=== PATIENT | female | born 1980 | race Caucasian/White ===

== ENCOUNTER 2020-03-31 11:16 | Outpatient (CLI) | payer BC, SELFPAY ==
--- NOTE | 2020-03-31 11:30 | MM_ITS ---
WS: [id number] BILATERAL SCREENING DIGITAL MAMMOGRAM WITH CAD HISTORY: screening COMPARISON: 04/03/2019 Bilateral CC and MLO views submitted. Computer aided detection analyzed. Breast composition: The breasts are heterogeneously dense, which may obscure small masses. No suspici ous masses, microcalcifications or architectural distortion. MM/[place] [id number] IMPRESSION: BI-RADS: 2-Benign FOLLOW UP: 1 Year Follow-up
== END 2020-03-31 11:17 | disposition home or self-care (01) ==
PROVIDERS: PCP Family Medicine; Visit Provider Obstetrics & Gynecology
DX: Z12.31 Encounter for screening mammogram for malignant neoplasm of breast (principal)
CPT/HCPCS: 77067

== ENCOUNTER 2021-06-30 12:49 | Outpatient (CLI) | payer OTHER, SELFPAY ==
--- NOTE | 2021-06-30 13:01 | MM_ITS ---
WS: [id number] BILATERAL DIGITAL SCREENING MAMMOGRAPHY WITH CAD CLINICAL INFORMATION: SCREENING HISTORY: Screening mammogram. No current complaints. COMPARISON: March 31, 2020 TECHNIQUE: Bilateral CC and MLO views. FINDINGS: The breasts are composed of heterogeneous fibroglandular density tissue, which can limit the detectio n of small underlying mass lesions. No suspicious mass, asymmetry, calcifications, or architectural d istortion. No evidence of malignancy. MM/[place] [id number] IMPRESSION: BI-RADS: 1-Negative FOLLOW UP: 1 Year Follow-up Recommend return to annual screening mammography.
== END 2021-06-30 12:50 | disposition home or self-care (01) ==
LOC: RADSHAW 12:55
PROVIDERS: PCP Family Medicine; Visit Provider Family Medicine
DX: Z12.31 Encounter for screening mammogram for malignant neoplasm of breast (principal)
CPT/HCPCS: 77067

== ENCOUNTER → 2021-10-12 08:12 | Outpatient (BNVA) | payer OTHER, SELFPAY | PROVIDERS: PCP Family Medicine; Visit Provider Obstetrics & Gynecology | DX: Z00.00 Encounter for general adult medical examination without abnormal findings (principal); R45.86 Emotional lability | CPT/HCPCS: 80061; 82670; 83036; 84443 ==

== ENCOUNTER 2022-08-03 08:18 | Outpatient (CLI) | payer OTHER, SELFPAY ==
--- NOTE | 2022-08-03 08:30 | FL_ITS ---
WS: [email or web address] Upper GI with air-contrast and small bowel follow-through, Clinical Data: EPIGASTRIC PAIN Comparison: None. Fluoroscopy time: 1.9 minutes # of spot films: 16 Findings: The patient swallowed the barium, and it flowed normally through the hypopharynx into the esophagus. There is mild cricopharyngeal achalasia at the C5-6 level. The esophagus showed normal motility. Ther e was a large hiatal hernia. There was significant gastroesophageal reflux with reflux occurring to t he level of the thoracic inlet. No polyp, mass, erosion, ulcer or fistula was seen. The barium passed into the stomach which was well distended and free of ulcer or deformity. No extri nsic mass could be seen. The barium then passed into the duodenal bulb which was well-distended and free of ulceration. The re mainder of the duodenum filled normally.. The jejunum and ileum were not remarkable. The terminal ileum showed no evidence of any obstruction o r stenosis. The barium then flowed into the cecum and ascending colon at one hour postingestion. FL/FL upper GI smallbowel series Impression: 1. Minimal cricopharyngeal achalasia at C5-C6. 2. Large hiatal hernia with marked gastroesophageal reflux. 3. Normal stomach mucosa. 4. Normal small bowel follow-through.
== END 2022-08-03 08:19 | disposition home or self-care (01) ==
PROVIDERS: PCP Family Medicine; Visit Provider Electrodiagnostic Medicine
DX: R10.13 Epigastric pain (principal); K44.9 Diaphragmatic hernia without obstruction or gangrene; K21.9 Gastro-esophageal reflux disease without esophagitis
CPT/HCPCS: 74240; 74248

== ENCOUNTER 2022-08-11 08:35 | Outpatient (CLI) | payer OTHER, SELFPAY ==
--- NOTE | 2022-08-11 08:50 | MM_ITS ---
WS: [email or web address] VIEWS: MLO and CC views both breasts. 3D digital tomosynthesis is also included in this exam. Comparison made with prior exam of 04/03/2019, 03/31/2020, 06/30/2021.. Findings: There was no sign of mass, architectural distortion or suspicious calcification in either breast. Sta ble appearing parenchymal densities in both breasts.Heterogeneously dense MM/[place] [id number] Impression: BI-RADS: 2-Benign FOLLOW-UP: 1 Year Follow-up This mammogram was also analyzed by the Computer Aided Detection System R2 [employer].
== END 2022-08-11 08:36 | disposition home or self-care (01) ==
PROVIDERS: PCP Family Medicine; Visit Provider Family Medicine
DX: Z12.31 Encounter for screening mammogram for malignant neoplasm of breast (principal)
CPT/HCPCS: 77063; 77067

== ENCOUNTER → 2023-03-02 09:51 | Outpatient (BNVA) | payer OTHER, SELFPAY | PROVIDERS: PCP Family Medicine; Visit Provider Family Medicine | DX: D64.9 Anemia, unspecified (principal); D50.9 Iron deficiency anemia, unspecified; M25.562 Pain in left knee | CPT/HCPCS: 82728; 83550; 85025 ==

== ENCOUNTER 2023-07-13 14:42 | Outpatient (CLI) | payer OTHER, SELFPAY ==
--- NOTE | 2023-07-13 14:49 | XR_ITS ---
WS: [email or web address] XR sacrum coccyx min 2V [id number] REASON FOR EXAM: tailbone pain FINDINGS: Normal sacroiliac joints. No insufficiency fracture of the sacrum. Coccyx is intact without fracture or dislocation. IMPRESSION: No acute abnormality.
== END 2023-07-13 14:43 | disposition home or self-care (01) ==
LOC: RAD 14:45
PROVIDERS: PCP Family Medicine; Visit Provider Family Medicine
DX: M53.3 Sacrococcygeal disorders, not elsewhere classified (principal)
CPT/HCPCS: 72220

== ENCOUNTER 2024-02-15 09:45 | Outpatient (CLI) | payer OTHER, SELFPAY ==
--- NOTE | 2024-02-15 10:00 | MM_ITS ---
WS: [id number] SCREENING DIGITAL BREAST TOMOSYNTHESIS MAMMOGRAM WITH CAD HISTORY: Z12.39 - Encounter for other screening for malignant neop... COMPARISON: 08/11/2022, 06/30/2021, 07/04/2018 Bilateral CC and MLO with tomosynthesis and synthetic mammography submitted. Computer aided detection analyzed. Breast composition: The breasts are heterogeneously dense, which may obscure small masses. Increasing asymmetry and density in the central RIGHT breast seen best on the cc projection. Asymmetry is centr al and in the superior breast on lateral. The LEFT breast is unchanged since the prior study. No susp icious calcifications. MM/[place] [id number] IMPRESSION: BI-RADS: 0-Incomplete: Need additional imaging evaluation FOLLOW UP: Need Additional Imaging RIGHT breast: Spot compression views (CC and MLO). True ML. Ultrasound to follo w if abnormality persists. Recommend better compression over the central and la teral portion of the RIGHT breast.
== END 2024-02-15 09:46 | disposition home or self-care (01) ==
LOC: RAD 09:46
PROVIDERS: PCP Family Medicine; Visit Provider Nurse Practitioner Women's Health
DX: Z12.39 Encounter for other screening for malignant neoplasm of breast (principal); R92.333 Mammographic heterogeneous density, bilateral breasts; N64.89 Other specified disorders of breast
CPT/HCPCS: 77063; 77067

== ENCOUNTER 2024-03-11 11:14 | Outpatient (CLI) | payer OTHER, SELFPAY ==
--- NOTE | 2024-03-11 11:22 | MM_ITS ---
WS: [email or web address] ADDITIONAL VIEWS RIGHT MAMMOGRAM WITH DIGITAL BREAST TOMOSYNTHESIS. RIGHT breast ultrasound, limited. HISTORY: ABNORMAL MAMMOGRAM COMPARISON: 02/15/2024, 08/11/2022, 06/30/2021 and 03/31/2020 Spot compression views RIGHT breast in CC, MLO projections and true ML submitted with digital breast tomosynthesis and SM. Breast composition: The breasts are heterogeneously dense, which may obscure small masses. Asymmetry in the central breast has nearly completely resolved with additional imaging. There is stil l mild asymmetry in the central breast but no distortion. There is no architectural distortion or mas s identified. No suspicious grouping of calcifications. RIGHT breast ultrasound, limited. Ultrasound is performed along the 12-6 o'clock axis. The asymmetry that was seen on the mammogram is not identified by ultrasound. There is no shadowing or distortion. Dense fibroglandular tissue. MM/MM diag RT tomosynthesis [id number] IMPRESSION: BI-RADS: 2 - Benign FOLLOW UP: 1 Year Follow-up
--- NOTE | 2024-03-11 12:00 | US_ITS ---
WS: [email or web address] ADDITIONAL VIEWS RIGHT MAMMOGRAM WITH DIGITAL BREAST TOMOSYNTHESIS. RIGHT breast ultrasound, limited. HISTORY: ABNORMAL MAMMOGRAM COMPARISON: 02/15/2024, 08/11/2022, 06/30/2021 and 03/31/2020 Spot compression views RIGHT breast in CC, MLO projections and true ML submitted with digital breast tomosynthesis and SM. Breast composition: The breasts are heterogeneously dense, which may obscure small masses. Asymmetry in the central breast has nearly completely resolved with additional imaging. There is stil l mild asymmetry in the central breast but no distortion. There is no architectural distortion or mas s identified. No suspicious grouping of calcifications. RIGHT breast ultrasound, limited. Ultrasound is performed along the 12-6 o'clock axis. The asymmetry that was seen on the mammogram is not identified by ultrasound. There is no shadowing or distortion. Dense fibroglandular tissue. US/US breast RT complete [id number] IMPRESSION: BI-RADS: 2 - Benign FOLLOW UP: 1 Year Follow-up
== END 2024-03-11 11:15 | disposition home or self-care (01) ==
LOC: RAD 11:14
PROVIDERS: PCP Family Medicine; Visit Provider Nurse Practitioner Women's Health
DX: R92.8 Other abnormal and inconclusive findings on diagnostic imaging of breast (principal); R92.333 Mammographic heterogeneous density, bilateral breasts
CPT/HCPCS: 76641; 77061; G0279

== ENCOUNTER → 2024-09-12 09:01 | Outpatient (BNVA) | payer OTHER, SELFPAY | PROVIDERS: PCP Family Medicine; Visit Provider Family Medicine | DX: D50.0 Iron deficiency anemia secondary to blood loss (chronic) (principal); Z12.11 Encounter for screening for malignant neoplasm of colon; I95.1 Orthostatic hypotension; F41.1 Generalized anxiety disorder; K44.9 Diaphragmatic hernia without obstruction or gangrene; K21.9 Gastro-esophageal reflux disease without esophagitis | CPT/HCPCS: 80053; 82728; 83550; 84439; 84443; 85025 ==

== ENCOUNTER 2024-10-07 10:14 | Day surgery (SDC) | payer OTHER, SELFPAY ==
--- NOTE | 2024-10-07 09:31 | ANES.PREANE2 ---
Pre-Anesthetic Assessment Height/Weight: Height 1.73 m Preop Diagnosis: Screen Operation Date: 10/07/24 11:30 Proposed Procedures p Colonoscopy 77749 G0121 Z12.11(Not Applicable) - Blayne Sandoval MD Familial anesthetic complications: none Was Beta Angella taken within 24 hours: N/A Was Clonidine taken within 24 hours: N/A Social No alcohol and No tobacco Exam alert, oriented x 3, clear to auscultation bilaterally and regular rate & rhythm Airway Cervical ROM: within normal limits Mallampati: Class II Dentition: full History/ROS No significant history except as noted Pulmonary None reported CV/HEM Anemia None reported Hepatic None reported GI None reported Metabolic None reported Musc/skel None reported Neuropsych Anxiety Anesthetic Plan ASA status: 2 Anesthesia: MAC Risk of > 500 ml blood loss (7ml/kg in children): No Medications/Allergies Home Medications ?Medication ?Instructions ?Recorded ?Confirmed ?Last Taken ?Type acetaminophen 325 mg capsule 325 mg PO QID PRN Pain (Scale 11/20/22 10/07/24 10/04/24 History (Tylenol) Score 4-6) magnesium 250 mg tablet 250 mg PO DAILY 11/20/22 10/01/24 10/05/24 History melatonin 5 mg capsule 5 mg PO DAILY 11/20/22 10/01/24 10/05/24 History Collagen 2gm 1 tab PO DAILY 07/13/23 10/01/24 10/05/24 History biotin 5,000 mcg chewable tablet 5,000 mcg PO DAILY 07/13/23 10/01/24 10/05/24 History calcium carbonate (Calcium 600) 600 mg PO BID 07/13/23 10/01/24 10/05/24 History ferrous gluconate 324 mg (37.5 mg 324 mg PO DAILY 07/13/23 10/01/24 10/05/24 History iron) tablet mecobalamin (vitamin B12) 2,500 2,500 mcg PO DAILY 07/13/23 10/01/24 10/05/24 History mcg chewable tablet mirafiber 8gm 8 g PO DAILY 07/13/23 10/01/24 10/05/24 History multivitamin with iron 1 tab PO DAILY 07/13/23 10/01/24 10/05/24 History sertraline 100 mg tablet 100 mg PO DAILY #60 tabs 09/12/24 10/01/24 10/06/24 Rx Allergies Allergy/AdvReac Type Severity Reaction Status Date / Time crab Allergy Intermediate HIVES Verified 10/07/24 10:26 lobster Allergy Intermediate ALGY-Hives Verified 10/07/24 10:26 [facility] Anesthesia Medical History Hiatal hernia with gastroesophageal reflux Anemia SARAI (generalized anxiety disorder) Surgical History History of Mark fundoplication History of Mariama-en-Y gastric bypass Hx of cholecystectomy (~2012) 2012--Laparoscopic cholecystectomy done for Gallstones. Performed by Dr. Carmichael at [facility] [place] [facility] [place] Hx of hysterectomy (01/21/15) Total vaginal hysterectomy, bilateral uterosacral suspension, anterior colporrhaphy, Bhargavi plication and cystoscopy for incomplete uterovaginal prolapse by Dr. Mojica and Dr. Jacobs. Pathology showed no significant dysplasia/hyperplasia. Family History Mother Hypertension Grandmother Breast cancer Maternal, diagnosed in her late 20s, of same at age 32 Sister Parathyroid abnormality Denies family history of Colon cancer Ovarian cancer Diabetes Heart disease Hyperlipidemia Uterine cancer Thyroid disease Stroke Social History Smoking and tobacco/nicotine status: former use of tobacco/nicotine Alcohol intake: current Alcohol intake frequency: holidays/special occasions only Substance/Drug Use: never Data Anesthesia Cardiac Studies: No Data to Display
--- NOTE | 2024-10-07 10:07 | W.PM.OPSUD ---
Surgery/Procedure H&P Update DATE OF PROCEDURE: October 07, 2024 DATE H&P PERFORMED: 09/22/24 H&P UPDATE INFORMATION: I have reviewed H&P completed within last 30 days, I have examined patient prior to procedure and No changes to prior documentation PREOP DIAGNOSIS: Screen PLANNED PROCEDURE: Operation Date: 10/07/24 11:30 Proposed Procedures p Colonoscopy 33972 G0121 Z12.11(Not Applicable) - Blayne Sandoval MD
[2024-10-07 10:28] VITALS: BP 111/65; PULSE 56; RESP 18; TEMP 36.8; O2SAT 100; BMI 28.8
[2024-10-07] MEDS: sodium chloride 0.9% 500 ML 30 ML IV (10:39)
[2024-10-07 10:53] VITALS: BP 104/53; PULSE 50; RESP 14; TEMP 36.1; O2SAT 100
[2024-10-07 11:06] VITALS: BP 106/67; PULSE 60; RESP 16; O2SAT 100
--- NOTE | 2024-10-07 11:25 | ANE.PACU2 ---
Inpatient post-anesthesia follow up: Airway intact: Yes Vital signs: Temperature 97.0 F Pulse Rate 60 Respiratory Rate 16 Blood Pressure 106/67 Pulse Oximetry 100 Oxygen Delivery Me thod Room Air Oxygen Flow Rate Fraction of Inspir ed Oxygen Hydration adequate: Yes Nausea and vomiting: No Pain level: 1 Mental status: Baseline
== END 2024-10-07 11:25 | disposition home or self-care (01) ==
PROVIDERS: PCP Family Medicine; Visit Provider Student in an Organized Health Care Education/Training Program
PROC: 0DJD8ZZ Inspection of Lower Intestinal Tract, Via Natural or Artificial Opening Endoscopic (ICD-10-PCS; CPT 45378; principal; 2024-10-07 11:30)
DX: Z12.11 Encounter for screening for malignant neoplasm of colon (principal); K57.30 Diverticulosis of large intestine without perforation or abscess without bleeding; Z79.899 Other long term (current) drug therapy; Z98.84 Bariatric surgery status; Z87.891 Personal history of nicotine dependence; Z90.49 Acquired absence of other specified parts of digestive tract
CPT/HCPCS: 45378; J2704; J7030; J7040

== ENCOUNTER 2025-02-20 10:09 | Outpatient (CLI) | payer OTHER, SELFPAY ==
--- NOTE | 2025-02-20 10:20 | MM_ITS ---
WS: [id number] BILATERAL SCREENING DIGITAL TOMOSYNTHESIS MAMMOGRAM WITH CAD HISTORY: Z12.39 - Encounter for other screening for malignant neop... COMPARISON: 08/11/2022, 02/15/2024, 06/30/2021, 03/31/2020 Bilateral CC and MLO views with tomosynthesis and synthetic mammography submitted. Computer aided detection analyzed. Breast composition: The breasts are extremely dense, which lowers the sensitivity of mammography. No suspicious masses, microcalcifications or architectural distortion. Well-circumscribed mass in the anterior to mid RIGHT breast central to the nipple measures 6 x 8 x 6 mm. This mass was probably present in 2022 but obscured by the dense breast tissue. No additional abnormalities. MM/MM [facility] tomosynthesis [id number] IMPRESSION: BI-RADS: 0 - Incomplete: Need additional imaging evaluation FOLLOW UP: Need Additional Imaging Recommendation: RIGHT breast ultrasound, limited 5-7 o'clock axis RIGHT breast. Anterior to middle depth.
== END 2025-02-20 10:10 | disposition home or self-care (01) ==
LOC: RAD 10:10
PROVIDERS: PCP Family Medicine; Visit Provider Nurse Practitioner Women's Health
DX: Z12.31 Encounter for screening mammogram for malignant neoplasm of breast (principal); R92.313 Mammographic fatty tissue density, bilateral breasts; N63.10 Unspecified lump in the right breast, unspecified quadrant
CPT/HCPCS: 77063; 77067

== ENCOUNTER 2025-03-09 09:58 | Outpatient (CLI) | payer OTHER, SELFPAY ==
--- NOTE | 2025-03-09 10:05 | US_ITS ---
WS: [email or web address] ULTRASOUND RIGHT BREAST, limited HISTORY: Additional imaging RIGHT breast. Dense fibroglandular tissue and mass in the anterior RIGHT breast. COMPARISON: 02/20/2025, 03/11/2024 TECHNIQUE: 2-D and Doppler. Very dense fibroglandular tissue in the retroareolar RIGHT breast. Identified is a well-circumscribed cyst in the retroareolar anterior breast measuring 8 x 6 x 7 mm. No increased vascularity and no soft tissue component. US/US breast RT limited* [id number] IMPRESSION: BI-RADS: 2- Benign FOLLOW-UP: 1 Year Follow-up Return to annual screening mammography. Benign cyst in the retroareolar RIGHT b reast.
== END 2025-03-09 09:59 | disposition home or self-care (01) ==
LOC: RAD 10:00
PROVIDERS: PCP Family Medicine; Visit Provider Nurse Practitioner Women's Health
DX: R92.8 Other abnormal and inconclusive findings on diagnostic imaging of breast (principal); R92.321 Mammographic fibroglandular density, right breast; N60.01 Solitary cyst of right breast
CPT/HCPCS: 76642